=== PATIENT | male | born 1980 | race Caucasian/White ===

== ENCOUNTER 2024-07-09 15:05 | Emergency (ER) | payer BC, SELFPAY ==
[2024-07-09] VITALS (9 sets, daily range): BP systolic 151–198; BP diastolic 96–136; PULSE 108–120; RESP 14–21; TEMP 36.6; O2SAT 97–99
--- NOTE | ~2024-07-09 | US_ITS ---
EXAMINATION: US venous doppler [facility] DATE: 07/09/2024 18:58 INDICATION: Left lower limb swelling TECHNIQUE: Grayscale ultrasound images without and with compression and Doppler ultrasound images of the left lower extremity veins were obtained. COMPARISON: None. FINDINGS: The visualized portions of left common femoral vein, profunda (deep) femoral vein, femoral vein, popl iteal vein, peroneal veins, posterior tibial veins and greater saphenous vein outflow are patent. IMPRESSION: 1. No deep venous thrombosis in the left lower limb. Reviewed, dictated and finalized at location A.
--- NOTE | 2024-07-09 15:44 | PC.NURSE ---
Patient denies suicidal or homicidal thoughts. Patient states he would like for his medications would like to be evaluated by the provider today. Patient states he takes lithium but hasnt had his blood drawn or has seen his psychiatrist in 3 years.
--- NOTE | 2024-07-09 15:49 | PC.NURSE ---
Patient also states at this time that he has new onset leg swelling. Denies pain.
--- NOTE | 2024-07-09 16:03 | PC.NURSE ---
Called [facility] at this time. Spoke with Charles. Counselor states they will be here soon.
[2024-07-09] MEDS: SODIUM CHLORIDE 0.9% IV 2,000 ML 999 ML IV CONT (16:26)
[2024-07-09] MEDS: diazePAM INJ (*CRX) 10 MG/2 ML SYRINGE 5 MG IV PUSH (16:27)
[2024-07-09 16:28] LABS: Add Urine Microscopic? NO; Appearance Urine Clear (Clear); Bilirubin Urine Negative (Negative); Blood Urine Negative (Negative); Color Urine Yellow (Yellow); Glucose Urine UA 3+ mg/dL (Negative); Ketones Urine Negative (Negative); Leukocyte Esterase Ur Negative LEU/UL (Negative); Nitrate Urine Negative (Negative); Protein Urine Negative (Negative); Specific Grav Ur 1.006 (1.001-1.035); Urobilinogen Urine 0.2 mg/dL (<2.0)
[2024-07-09 16:33] LABS: Basophils Percent Auto 0.3 % (0.2-1.2); Eosinophils Percent Auto 0.5 % (0-4.4); Hematocrit 44.5 % (42.0-52.0); Hemoglobin 15.6 g/dL (14.0-18.0); Immature Granulocyte Absolute 0.04 K/mm3 (0.00-0.031); Immature Granulocyte Percent A 0.7 % (0-0.5); Lymphocytes Absolute Auto 1.25 K/mm3 (0.9-3.2); Lymphocytes Percent Auto 20.5 % (18.3-44.2); Mean Corpuscular HGB Conc 35.1 g/dl (32-36); Mean Corpuscular Hemoglobin 30.8 pg (26-34); Mean Corpuscular Volume 87.9 fl (80-100); Mean Platelet Volume 9.9 fl (7.4-10.4); Monocytes Absolute Auto 0.7 K/mm3 (0.1-0.6); Monocytes Percent Auto 11.8 % (2.6-8.5); Neutrophils Percent Auto 66.2 % (45.5-73.1); Platelet Count Result 169 k/mm3 (150-375); Red Blood Count 5.06 M/mm3 (4.6-6.20); Red Cell Distribution Width 12.2 % (11.5-14.5); White Blood Count 6.1 K/mm3 (4.5-10.0)
[2024-07-09 16:44] LABS: Alanine Aminotransferase 67 U/L (6-50); Albumin Level 4.6 g/dL (3.5-5.1); Alkaline Phosphatase 106 U/L (38-126); Anion Gap 15 mmol/L (4-12); Aspartate Amino Transferase 57 U/L (17-59); Bilirubin,Total 0.7 mg/dL (0.2-1.3); Blood Urea Nitrogen 19 mg/dL (9-20); Calcium 9.5 mg/dL (8.4-10.2); Carbon Dioxide 23 mmol/L (22-30); Chloride 96 mmol/L (98-107); Estimated CRCL calculation 120 ml/min; Estimated Glomerular Filt Rate > 60; Glucose 352 mg/dL (65-110); Sodium 134 mmol/L (137-145)
[2024-07-09 17:03] LABS: Influenza A QL RT-PCR Negative (Negative); Influenza B QL RT-PCR Negative (Negative); RSV RNA, RT-PCR Negative (Negative); SARS-CoV-2 RNA PCR Negative (Negative)
--- NOTE | 2024-07-09 17:29 | ED.GENADULT ---
HPI - General Adult General Chief complaint: Psychiatric Symptoms Stated complaint: manic-bipolar disorder Time Seen by Provider: 07/09/24 15:16 History of Present Illness HPI narrative: This is a 44-year-old male with psychiatric illness(unclear if bipolar or schizoaffective) presenting for psychiatric evaluation. Patient says that he has gone more jittery than usual over the last several days. He has stopped sleeping at night. Additionally he is constantly thirsty and having increased urination. Patient has started to wean himself off psychiatric medications because he does not know what they do. Patient does not have a primary care physician or psychiatrist that he follows with. Patient denies SI or HI. Denies use of drugs or alcohol. No auditory or visual hallucinations. Related Data Allergies Allergy/AdvReac Type Severity Reaction Status Date / Time No Known Allergies Allergy Verified 07/09/24 15:33 [facility] Social History Social History Substance use type: unknown Exam Narrative: APPEARANCE: No apparent distress. A&O x3 Head: atraumatic. EYES: EOMI, NOSE: Atraumatic NECK: Trachea midline RESPIRATORY: No increased rate of breathing clear to auscultation CARDIOVASCULAR: RRR, swelling of the left lower extremity greater than the right with palpable varicose veins and a small ulceration to the left wilburn. ABDOMINAL: Non-distended MUSCULOSKELETAl: No obvious deformities NEURO: Alert. Moving 4/4 extremities SKIN:: Mild skin lesion over the left wilburn with surrounding erythema PSYCHIATRIC: Normal affect Course Vital Signs Vital signs: Vital Signs Temperature 98 F 07/09/24 15:20 Pulse Rate 120 H 07/09/24 15:20 Respiratory Rate 19 07/09/24 15:20 Blood Pressure 198/136 H 07/09/24 15:20 Pulse Oximetry 99 07/09/24 15:20 Oxygen Delivery Room Air 07/09/24 15:20 Temperature 98 F 07/09/24 15:20 Pulse Rate 109 H 07/09/24 17:01 Respiratory Rate 20 07/09/24 17:01 Blood Pressure 172/113 H 07/09/24 17:01 Pulse Oximetry 97 07/09/24 17:01 Oxygen Delivery Room Air 07/09/24 15:20 Medical Decision Making MDM Narrative Medical decision making narrative: -Course: 44-year-old male with psychiatric illness with weaning himself off his medications presenting with increased jitteriness and not sleeping at night. Tachycardic on arrival. Screening lab work consistent with undiagnosed diabetes without evidence of HHS/DKA. Patient given fluid resuscitation. I attempted to explain diabetes to the patient and he informed me that he can not control his blood sugars with his mind. Further information was given to the patient's . Patient will be started on metformin although patient is high risk for medication noncompliance. Crisis evaluated the patient is given him resources for psychiatric illness and arranged a primary care visit for him.. Patient will be discharged to follow-up with a primary care physician and a psychiatrist. Placed on Keflex for mild soft tissue infection of his left leg. DVT scan negative. -DDX includes but is not limited to: Manic episode, medication noncompliance, substance use disorder, psychotic break -Co-morbidities complicating care: Psychiatric illness, diabetes -Independent interpretation of studies: Labs reviewed. Glucose elevated at 352. Slight hyponatremia and hypochloremia. Urine with 3+ glucose but no signs of infection. Viral swabs negative -Discussion of Management/Consultants: Crisis [facility] -Interventions: 2 L normal saline -Shared decision making / Disposition:Discharged. Vital Signs Vital Signs: Vital Signs Temperature 98 F 07/09/24 15:20 Pulse Rate 120 H 07/09/24 15:20 Respiratory Rate 19 07/09/24 15:20 Blood Pressure 198/136 H 07/09/24 15:20 Pulse Oximetry 99 07/09/24 15:20 Oxygen Delivery Room Air 07/09/24 15:20 Temperature 98 F 07/09/24 15:20 Pulse Rate 109 H 07/09/24 17:01 Respiratory Rate 2
[2024-07-09 17:38] LABS: Acetaminophen < 10 ug/mL (10-30); Ethanol < 10 mg/dL (<10); Salicylate < 1.0 mg/dL (2-20)
[2024-07-09 17:40] LABS: Hemoglobin A1C 9.8 % (<5.7)
[2024-07-09 17:50] LABS: Amphetamine Screen Urine Negative (Negative); Barbiturate Screen Urine Negative (Negative); Benzodiazepines Screen Urine Negative (Negative); Cannabinoid Screen Urine Negative (Negative); Cocaine Screen Urine Negative (Negative); Methadone Screen Urine Negative (Negative); Opiate Screen Urine Negative (Negative); Phencyclidine Screen Urine Negative (Negative)
[2024-07-09 18:10] LABS: Lithium < 0.2 mmol/L (0.6-1.2)
[2024-07-14 16:18] LABS: Carbamazepine Tegretol 7.8 mcg/mL (4.0-12.0)
== END 2024-07-09 19:29 | disposition home or self-care (01) ==
PROVIDERS: Emergency Provider Emergency Medicine
DX: F99 Mental disorder, not otherwise specified (principal); R60.0 Localized edema; E11.9 Type 2 diabetes mellitus without complications; Z20.822 Contact with and (suspected) exposure to COVID-19
CPT/HCPCS: 36415; 80053; 80156; 80178; 80307; 81003; 83036; 84443; 85025; 87637; 93971; 96361; 96374; 99284; J3360; J7030